=== PATIENT | female | born 1945 | race Caucasian/White ===

== ENCOUNTER → 2016-06-28 | Outpatient (CLI) | payer MEDICARE ==
[~2016-06-28] MED LIST: ADVAIR INH; ALEN70TA5 PO; ALPR-475 PO; ASPI-650 PO; ATOR40TA78 PO; LEVO75TA5 PO; OMEG1CAP12 PO; SERT50TA PO; TIOT18CA INH
== END | disposition home or self-care (01) ==
LOC: CFH 09:01
PROVIDERS: ATTEND Internal Medicine
DX: J43.9 Emphysema, unspecified (principal); I25.10 Atherosclerotic heart disease of native coronary artery without angina pectoris
CPT/HCPCS: 71250

== ENCOUNTER 2016-09-15 07:44 | Inpatient (IN) | payer MEDICARE ==
[~2016-09-15] VITALS: Ht 165.1 cm; Wt 80.6 kg
[~2016-09-15 07:44] MED LIST changes: -OMEG1CAP12 PO; +OMEG1CAP23 PO
[2016-09-15] MEDS ORDERED: ALBUTEROL SULFATE 2.5 MG/3 ML ONE ×4 (07:55→09:05)
[2016-09-15] MEDS ORDERED: methylPREDNISolone SOD SUCC 125 MG/2 ML ONE (07:55)
[2016-09-15] MEDS ORDERED: methylPREDNISolone SOD SUCC 125 MG/2 ML IVP ONE (08:00)
[2016-09-15] MEDS ORDERED: SODIUM CHLORIDE 0.9% 1,000ML IVBOLUS ONE (08:00)
[2016-09-15] MEDS ORDERED: ASPI-621 PO (08:20)
[2016-09-15] MEDS ORDERED: FLUT1DIS3 INH (08:23)
[2016-09-15] MEDS ORDERED: ALBU1.25 NEB (08:25)
[2016-09-15 08:26] LABS: ABG COLLECTION SITE RIGHT RADIAL; COLLATERAL CIRCULATION TESTING NORMAL
[2016-09-15] MEDS ORDERED: ALBU18HF IH (08:26)
[2016-09-15] MEDS ORDERED: PRED5TAB PO (08:27)
[2016-09-15] MEDS ORDERED: TRAM50TA2 PO (08:28)
[2016-09-15 08:34] LABS: HEMATOCRIT 44.1 % (34.6-47.8); HEMOGLOBIN 14.2 g/dL (11.7-16.4); WHITE BLOOD COUNT 9.6 x10^3/uL (3.4-10)
[2016-09-15] MEDS ORDERED: ACETAMINOPHEN 325 MG TABLET ONE (08:39)
[2016-09-15 08:51] LABS: ASPARTATE AMINO TRANSFERASE 21 U/L (15-37); BLOOD UREA NITROGEN 15 mg/dL (7-18)
[2016-09-15 08:57] LABS: IS PT STATUS REG ER OR PRE ER? YES
[2016-09-15] MEDS ORDERED: ACETAMINOPHEN 325 MG TABLET PO ONE (09:00)
[2016-09-15] MEDS ORDERED: MAGNESIUM SULFATE PMX 2GM/50ML 50 ML IV ONE (09:00)
[2016-09-15] MEDS ORDERED: SODIUM CHLORIDE FLUSH 10ML SYR IVF PRN (11:00)
[2016-09-15] MEDS ORDERED: ALBUTEROL/IPRATROPIUM 2.5MG/0.5MG, 3 ML ONE (11:38)
[2016-09-15] MEDS ORDERED: ACETAMINOPHEN 325 MG TABLET PO PRN (12:00)
[2016-09-15] MEDS ORDERED: ALENDRONATE 70 MG TABLET PO SCH (12:00)
[2016-09-15] MEDS: ALBUTEROL/IPRATROPIUM 2.5MG/0.5MG, 3 ML NPPB SCH ×4 (14:00→22:00)
[2016-09-15] MEDS: ENOXAPARIN 30 MG/0.3 ML SQ SCH (14:13)
[2016-09-15] MEDS ORDERED: ALBUTEROL/IPRATROPIUM 2.5MG/0.5MG, 3 ML NPPB SCH (15:00)
[2016-09-15 19:41] VITALS: BP 109/54
[2016-09-15] MEDS: SERTRALINE 50MG TABLET PO SCH (20:42)
[2016-09-15] MEDS: FAMOTIDINE 20 MG TABLET PO SCH (20:42)
[2016-09-15] MEDS: TEMPLATE NON-FORMULARY MED. (Tiotropium Bromide** (Spiriva**) 18 MCG) INH SCH (20:42)
[2016-09-15] MEDS: ATORVASTATIN 40 MG TABLET PO SCH (20:42)
[2016-09-15] MEDS ORDERED: ZOLP-413 PO (20:46)
[2016-09-15] MEDS ORDERED: TEMPLATE NON-FORMULARY MED. (Fluticasone/Salmeterol** (Advair 250-50 Diskus**) 1 PUFF) INH SCH (21:00)
[2016-09-15] MEDS ORDERED: ZOLPIDEM 5MG TABLET PO PRN (23:30)
[2016-09-16 01:38] VITALS: BP 114/62
[2016-09-16] MEDS: ENOXAPARIN 30 MG/0.3 ML SQ SCH ×2 (02:00→16:13)
[2016-09-16] MEDS: ALBUTEROL/IPRATROPIUM 2.5MG/0.5MG, 3 ML NPPB SCH ×5 (07:07→22:00)
[2016-09-16] MEDS: LEVOTHYROXINE 75 MCG TABLET PO SCH (08:38)
[2016-09-16] MEDS: ASPIRIN 81 MG TABLET EC PO SCH (08:38)
[2016-09-16 08:43] VITALS: BP 117/69
[2016-09-16] MEDS: TEMPLATE NON-FORMULARY MED. (Tiotropium Bromide** (Spiriva**) 18 MCG) INH SCH ×2 (09:00→21:00)
[2016-09-16 13:59] VITALS: BP 113/69
[2016-09-16] MEDS: FLUTICASONE/VILANTEROL 100-25MCG/INH INH SCH (16:12)
[2016-09-16] MEDS ORDERED: MAGNESIUM HYDROXIDE 8%, 30ML UDC PO PRN (19:00)
[2016-09-16 19:45] VITALS: BP 107/62
[2016-09-16] MEDS: FAMOTIDINE 20 MG TABLET PO SCH (21:59)
[2016-09-16] MEDS: SERTRALINE 50MG TABLET PO SCH (21:59)
[2016-09-16] MEDS: ATORVASTATIN 40 MG TABLET PO SCH (21:59)
[2016-09-17 02:06] VITALS: BP 116/74
[2016-09-17] MEDS: ENOXAPARIN 30 MG/0.3 ML SQ SCH (05:55)
[2016-09-17 06:55] VITALS: BP 114/71
[2016-09-17] MEDS: LEVOTHYROXINE 75 MCG TABLET PO SCH (07:40)
[2016-09-17] MEDS: ALBUTEROL/IPRATROPIUM 2.5MG/0.5MG, 3 ML NPPB SCH ×2 (08:01→12:21)
[2016-09-17] MEDS: FLUTICASONE/VILANTEROL 100-25MCG/INH INH SCH (08:15)
[2016-09-17] MEDS: ASPIRIN 81 MG TABLET EC PO SCH (08:15)
[2016-09-17] MEDS: TEMPLATE NON-FORMULARY MED. (Tiotropium Bromide** (Spiriva**) 18 MCG) INH SCH (08:16)
[2016-09-17] MEDS ORDERED: PRED20TA PO (10:50)
== END 2016-09-17 12:45 | disposition home or self-care (01) | DRG 189 ==
LOC: ED 09:02 → EDIP 10:47 → 4EST 12:58
PROVIDERS: ADMIT Family Medicine; ATTEND Family Medicine
PROC: 5A09357 Assistance with Respiratory Ventilation, Less than 24 Consecutive Hours, Continuous Positive Airway Pressure (ICD-10-PCS; principal; 2016-09-15)
DX: J96.01 Acute respiratory failure with hypoxia (principal); J44.1 Chronic obstructive pulmonary disease with (acute) exacerbation; E03.9 Hypothyroidism, unspecified; F32.9 Major depressive disorder, single episode, unspecified; G47.00 Insomnia, unspecified; G47.30 Sleep apnea, unspecified; I49.3 Ventricular premature depolarization; M81.0 Age-related osteoporosis without current pathological fracture; Z85.038 Personal history of other malignant neoplasm of large intestine; Z86.73 Personal history of transient ischemic attack (TIA), and cerebral infarction without residual deficits; Z87.891 Personal history of nicotine dependence; Z79.899 Other long term (current) drug therapy; Z79.82 Long term (current) use of aspirin
CPT/HCPCS: 36415; 36600; 71010; 80053; 82803; 83605; 83880; 84484; 85025; 87040; 93005; 94640; 94660; 96365; 96366; 96375; J1650; J7620; J2930; J3475; J7030; J7512

== ENCOUNTER → 2017-02-17 | Outpatient (CLI) | payer MEDICARE ==
[~2017-02-17] MED LIST changes: +ALBU1.25 NEB; +ALBU18HF IH; +ASPI-621 PO; +FLUT1DIS3 INH; +PRED20TA PO; +PRED5TAB PO; +TRAM50TA2 PO; +ZOLP-413 PO
== END | disposition home or self-care (01) ==
LOC: CFH 15:38
PROVIDERS: ATTEND Internal Medicine Cardiovascular Disease
DX: R06.02 Shortness of breath (principal); E78.5 Hyperlipidemia, unspecified; Z86.73 Personal history of transient ischemic attack (TIA), and cerebral infarction without residual deficits
CPT/HCPCS: 93306

== ENCOUNTER 2018-01-19 20:33 | Inpatient (IN) | payer MEDICARE ==
[~2018-01-19] VITALS: Ht 167.6 cm; Wt 82.8 kg
[~2018-01-19 20:33] MED LIST changes: -ASPI-621 PO; +ASPI81TA45 PO
[2018-01-19] MEDS ORDERED: ALBUTEROL/IPRATROPIUM 2.5MG/0.5MG, 3 ML ONE (20:39)
[2018-01-19] MEDS ORDERED: ALBUTEROL SULFATE 2.5 MG/3 ML NPPB ONE ×2 (21:00→22:30)
[2018-01-19 21:08] LABS: BASOPHILS # (AUTO) 0.02 x10^3/uL (0-0.1); BASOPHILS % (AUTO) 0 % (0-1); EOSINOPHILS # (AUTO) 0.78 x10^3/uL (0-0.4); EOSINOPHILS % (AUTO) 8 % (1-7); LYMPHOCYTES # (AUTO) 2.18 x10^3/uL (1-3.4); LYMPHOCYTES % (AUTO) 21 % (22-44); MD NO; MEAN CORPUSCULAR HEMOGLOBIN 31.5 pg (27.0-34.8); MEAN CORPUSCULAR VOLUME 95.4 fL (80-100); MEAN PLATELET VOLUME 8.5 fL (7.4-10.4); MONOCYTES # (AUTO) 0.97 x10^3/uL (0.2-0.8); MONOCYTES % (AUTO) 9 % (2-9); NEUTROPHILS # (AUTO) 6.53 x10^3/uL (1.8-6.8); NEUTROPHILS % (AUTO) 62 % (42-75); PLATELET COUNT 222 x10^3/uL (130-400); RED BLOOD COUNT 4.32 x10^6/uL (3.82-5.3); RED CELL DISTRIBUTION WIDTH 15.3 % (9.6-15.2)
[2018-01-19 21:21] LABS: ALANINE AMINOTRANSFERASE 45 U/L (12-78); ALBUMIN 4.1 g/dL (3.4-5.0); ANION GAP 7 mmol/L (5-15); CALCIUM 8.9 mg/dL (8.5-10.1); CHLORIDE 107 mmol/L (98-107)
[2018-01-19 21:25] LABS: ALKALINE PHOSPHATASE 48 U/L (45-117); BILIRUBIN,TOTAL 0.4 mg/dL (0.2-1.0); TOTAL PROTEIN 7.3 g/dL (6.4-8.2); TROPONIN I < 0.015 ng/mL (0.000-0.045)
[2018-01-19] MEDS ORDERED: LEVO100T5 PO (21:33)
[2018-01-19] MEDS ORDERED: GABA300C10 PO (21:33)
[2018-01-19] MEDS ORDERED: ALBUTEROL/IPRATROPIUM 2.5MG/0.5MG, 3 ML NPPB SCH (23:00)
[2018-01-19] MEDS ORDERED: ACETAMINOPHEN 500 MG TABLET ONE (23:28)
[2018-01-20 00:08] VITALS: BP 122/74
[2018-01-20] MEDS ORDERED: methylPREDNISolone SOD SUCC 125 MG/2 ML ONE (00:40)
[2018-01-20] MEDS ORDERED: methylPREDNISolone SOD SUCC 125 MG/2 ML IVPush SCH (01:00)
[2018-01-20] MEDS ORDERED: ALBUTEROL/IPRATROPIUM 2.5MG/0.5MG, 3 ML HHN SCH (01:00)
[2018-01-20] MEDS: SODIUM CHLORIDE 0.9% 1,000 ML IV SCH ×2 (01:05→10:43)
[2018-01-20] MEDS ORDERED: LORazepam 2 MG/ML, 1ML ONE (01:17)
[2018-01-20] MEDS: HEPARIN 5,000 UNITS/ML, 1ML SQ SCH ×3 (01:23→16:27)
[2018-01-20] MEDS ORDERED: LORazepam 2 MG/ML, 1ML IVPush PRN (01:30)
[2018-01-20 01:38] VITALS: BP 132/74
[2018-01-20] MEDS ORDERED: AZITHROMYCIN 500 MG in SODIUM CHLORIDE 0.9% 250 ML IV ONE (02:00)
[2018-01-20] MEDS: ALBUTEROL/IPRATROPIUM 2.5MG/0.5MG, 3 ML HHN SCH ×6 (03:00→22:38)
[2018-01-20 04:00] VITALS: BP 112/46
[2018-01-20] MEDS ORDERED: AZITHROMYCIN 500 MG in SODIUM CHLORIDE 0.9% 250 ML IV SCH (04:00)
[2018-01-20] MEDS: methylPREDNISolone SOD SUCC 125 MG/2 ML IVPush SCH ×4 (04:51→22:10)
[2018-01-20] MEDS: CEFTRIAXONE PMX 1GM/50ML 50 ML IV SCH (05:32)
[2018-01-20] MEDS ORDERED: ALENDRONATE 70 MG TABLET PO SCH (06:30)
[2018-01-20] MEDS: BUDESONIDE 0.5 MG/2 ML INHA NPPB SCH ×2 (07:02→18:42)
[2018-01-20 07:20] LABS: MEAN CORPUSCULAR HEMOGLOBIN 30.8 pg (27.0-34.8); MEAN CORPUSCULAR HGB CONC 32.1 g/dL (32.4-35.8); MEAN CORPUSCULAR VOLUME 95.9 fL (80-100); MEAN PLATELET VOLUME 9.3 fL (7.4-10.4); PLATELET COUNT 182 x10^3/uL (130-400); RED BLOOD COUNT 3.94 x10^6/uL (3.82-5.3); RED CELL DISTRIBUTION WIDTH 15.8 % (9.6-15.2)
[2018-01-20 07:28] LABS: ANION GAP 9 mmol/L (5-15); CALCIUM 8.7 mg/dL (8.5-10.1); CHLORIDE 110 mmol/L (98-107); CREATININE 1.08 mg/dL (0.55-1.02)
[2018-01-20 08:40] LABS: BASOPHILS # (AUTO) 0.01 x10^3/uL (0-0.1); BASOPHILS % (AUTO) 0 % (0-1); EOSINOPHILS # (AUTO) 0.09 x10^3/uL (0-0.4); EOSINOPHILS % (AUTO) 1 % (1-7); LYMPHOCYTES # (AUTO) 0.27 x10^3/uL (1-3.4); LYMPHOCYTES % (AUTO) 3 % (22-44); MD SCAN; MONOCYTES # (AUTO) 0.15 x10^3/uL (0.2-0.8); MONOCYTES % (AUTO) 2 % (2-9); NEUTROPHILS # (AUTO) 9.51 x10^3/uL (1.8-6.8); NEUTROPHILS % (AUTO) 95 % (42-75)
[2018-01-20] MEDS ORDERED: TEMPLATE NON-FORMULARY MED. (Fluticasone/Salmeterol** (Advair 250-50 Diskus**) 1 PUFF) INH SCH (09:00)
[2018-01-20] MEDS ORDERED: FAMOTIDINE 20 MG TABLET PO SCH (09:00)
[2018-01-20] MEDS ORDERED: TEMPLATE NON-FORMULARY MED. (Tiotropium Bromide** (Spiriva**) 18 MCG) INH SCH (09:00)
[2018-01-20] MEDS: LEVOTHYROXINE 100 MCG TABLET PO SCH (09:05)
[2018-01-20] MEDS: ASPIRIN 81 MG TABLET EC PO SCH (09:05)
[2018-01-20] MEDS: ACETAMINOPHEN 325 MG TABLET PO PRN ×3 (09:05→22:11)
[2018-01-20] MEDS: FAMOTIDINE 20 MG/2 ML IVPush SCH ×2 (09:06→22:10)
[2018-01-20 11:58] LABS: RAPID INFLUENZA A Negative (Negative); RAPID INFLUENZA B Negative (Negative)
[2018-01-20] MEDS ORDERED: AZITHROMYCIN 250 MG TABLET PO SCH (20:00)
[2018-01-20] MEDS ORDERED: ATORVASTATIN 40 MG TABLET PO SCH (21:00)
[2018-01-20] MEDS ORDERED: SERTRALINE 100MG TABLET PO SCH (21:00)
[2018-01-20] MEDS ORDERED: GABAPENTIN 100 MG CAPSULE PO SCH (21:00)
[2018-01-20] MEDS ORDERED: TRAZODONE 50MG TABLET PO PRN (21:00)
[2018-01-20 21:29] VITALS: BP 126/71
[2018-01-21] MEDS: HEPARIN 5,000 UNITS/ML, 1ML SQ SCH ×3 (01:00→17:00)
[2018-01-21 01:26] VITALS: BP 109/65
[2018-01-21] MEDS: ALBUTEROL/IPRATROPIUM 2.5MG/0.5MG, 3 ML HHN SCH ×4 (03:00→14:56)
[2018-01-21] MEDS: CEFTRIAXONE PMX 1GM/50ML 50 ML IV SCH (04:24)
[2018-01-21] MEDS: methylPREDNISolone SOD SUCC 125 MG/2 ML IVPush SCH (04:24)
[2018-01-21 04:32] VITALS: BP 114/66
[2018-01-21 07:36] VITALS: BP 120/76
[2018-01-21] MEDS: BUDESONIDE 0.5 MG/2 ML INHA NPPB SCH (08:16)
[2018-01-21] MEDS: ASPIRIN 81 MG TABLET EC PO SCH (08:38)
[2018-01-21] MEDS: FAMOTIDINE 20 MG/2 ML IVPush SCH (08:38)
[2018-01-21] MEDS: LEVOTHYROXINE 100 MCG TABLET PO SCH (08:39)
[2018-01-21] MEDS ORDERED: CEFDINIR 300 MG CAPSULE PO SCH (10:00)
[2018-01-21 10:38] LABS: BASOPHILS # (AUTO) 0.02 x10^3/uL (0-0.1); BASOPHILS % (AUTO) 0 % (0-1); EOSINOPHILS % (AUTO) 0 % (1-7); LYMPHOCYTES # (AUTO) 0.48 x10^3/uL (1-3.4); LYMPHOCYTES % (AUTO) 4 % (22-44); MD NO; MEAN CORPUSCULAR HGB CONC 32.3 g/dL (32.4-35.8); MEAN CORPUSCULAR VOLUME 96.1 fL (80-100); MEAN PLATELET VOLUME 8.4 fL (7.4-10.4); MONOCYTES # (AUTO) 0.99 x10^3/uL (0.2-0.8); MONOCYTES % (AUTO) 9 % (2-9); NEUTROPHILS # (AUTO) 10.15 x10^3/uL (1.8-6.8); NEUTROPHILS % (AUTO) 87 % (42-75); PLATELET COUNT 193 x10^3/uL (130-400); RED BLOOD COUNT 3.76 x10^6/uL (3.82-5.3); RED CELL DISTRIBUTION WIDTH 15.8 % (9.6-15.2)
[2018-01-21 10:48] LABS: ANION GAP 9 mmol/L (5-15); CALCIUM 8.2 mg/dL (8.5-10.1); CHLORIDE 112 mmol/L (98-107)
[2018-01-21 10:49] LABS: CREATININE 1.03 mg/dL (0.55-1.02)
[2018-01-21 15:20] VITALS: BP 141/78
[2018-01-21] MEDS ORDERED: FAMOTIDINE 20 MG TABLET PO SCH (21:00)
== END 2018-01-21 17:25 | disposition home or self-care (01) | DRG 189 ==
LOC: ED 21:26 → EDIP 23:25 → 4WST 01-20 → CCU 01-20 02:27 → 3NE 01-20 20:50
PROVIDERS: ADMIT Family Medicine; ATTEND Family Medicine
PROC: 5A09357 Assistance with Respiratory Ventilation, Less than 24 Consecutive Hours, Continuous Positive Airway Pressure (ICD-10-PCS; principal; 2018-01-19)
PROC: 5A09357 Assistance with Respiratory Ventilation, Less than 24 Consecutive Hours, Continuous Positive Airway Pressure (ICD-10-PCS; 2018-01-20)
DX: J96.21 Acute and chronic respiratory failure with hypoxia (principal); J18.9 Pneumonia, unspecified organism; J44.1 Chronic obstructive pulmonary disease with (acute) exacerbation; E87.2 Acidosis; E05.90 Thyrotoxicosis, unspecified without thyrotoxic crisis or storm; R53.81 Other malaise; E03.9 Hypothyroidism, unspecified; F32.9 Major depressive disorder, single episode, unspecified; G47.00 Insomnia, unspecified; G47.33 Obstructive sleep apnea (adult) (pediatric); M81.0 Age-related osteoporosis without current pathological fracture; Z79.52 Long term (current) use of systemic steroids; Z80.3 Family history of malignant neoplasm of breast; Z86.73 Personal history of transient ischemic attack (TIA), and cerebral infarction without residual deficits; Z87.891 Personal history of nicotine dependence; Z99.81 Dependence on supplemental oxygen; Z90.49 Acquired absence of other specified parts of digestive tract; Z23 Encounter for immunization
CPT/HCPCS: 36415; 36600; 71045; 80048; 80053; 82803; 83605; 84484; 85025; 87040; 87081; 87400; 90656; 93005; 94640; 94660; 99285; G0378; J0456; J0696; J1644; J7613; J7620; J7626; J2060; J2930; J3490; J7030; J7050; J7512

== ENCOUNTER 2019-08-01 13:35 | Outpatient (CLI) | payer MEDICARE ==
[~2019-08-01 13:35] MED LIST changes: -ALEN70TA5 PO; +ALEN70TA6 PO; -ALPR-475 PO; +ALPR0.5T7 PO; +GABA300C10 PO; +LEVO100T5 PO
== END 2019-08-01 23:59 | disposition home or self-care (01) ==
LOC: CFH 13:35
PROVIDERS: ATTEND Nurse Practitioner Family
DX: J98.4 Other disorders of lung (principal); J98.11 Atelectasis
CPT/HCPCS: 71250

== ENCOUNTER 2019-08-06 08:53 | Outpatient (CLI) | payer MEDICARE ==
[2019-08-06 09:57] LABS: BASOPHILS # (AUTO) 0.02 x10^3/uL (0-0.1); BASOPHILS % (AUTO) 0 % (0-1); EOSINOPHILS # (AUTO) 0.12 x10^3/uL (0-0.4); EOSINOPHILS % (AUTO) 2 % (1-7); LYMPHOCYTES # (AUTO) 0.74 x10^3/uL (1-3.4); LYMPHOCYTES % (AUTO) 10 % (22-44); MD NO; MEAN CORPUSCULAR HEMOGLOBIN 30.1 pg (27.0-34.8); MEAN CORPUSCULAR HGB CONC 31.9 g/dL (32.4-35.8); MEAN CORPUSCULAR VOLUME 94.5 fL (80-100); MEAN PLATELET VOLUME 8.1 fL (7.4-10.4); MONOCYTES # (AUTO) 0.38 x10^3/uL (0.2-0.8); MONOCYTES % (AUTO) 5 % (2-9); NEUTROPHILS # (AUTO) 6.04 x10^3/uL (1.8-6.8); NEUTROPHILS % (AUTO) 83 % (42-75); PLATELET COUNT 189 x10^3/uL (130-400); RED BLOOD COUNT 4.12 x10^6/uL (3.82-5.3); RED CELL DISTRIBUTION WIDTH 15.4 % (9.6-15.2)
[2019-08-06 10:08] LABS: INTERNATIONAL NORMALIZED RATIO 0.93 (0.93-1.1); PROTHROMBIN TIME 9.8 Seconds (9.6-11.5)
[2019-08-06] MEDS ORDERED: OMEP20TA62 PO (14:08)
[2019-08-06] MEDS ORDERED: IBUP-1623 PO (14:08)
[2019-08-06] MEDS ORDERED: CYCL-259 PO (14:08)
[2019-08-06] MEDS ORDERED: DIAZ5TAB4 PO (14:08)
[2019-08-06] MEDS ORDERED: NAPR220C2 PO (14:08)
[2019-08-06] MEDS ORDERED: PRED5TAB PO (14:08)
[2019-08-06] MEDS ORDERED: FLUT1BLS3 IH (14:08)
== END 2019-08-06 23:59 | disposition home or self-care (01) ==
LOC: STAR 08:53
PROVIDERS: ATTEND Internal Medicine
DX: Z01.818 Encounter for other preprocedural examination (principal); R93.89 Abnormal findings on diagnostic imaging of other specified body structures; I49.8 Other specified cardiac arrhythmias
CPT/HCPCS: 36415; 85025; 85610; 85730; 87635; 93005

== ENCOUNTER 2019-08-10 10:02 | Day surgery (SDC) | payer MEDICARE ==
[~2019-08-10] VITALS: Ht 165.1 cm; Wt 80.4 kg
[~2019-08-10 10:02] MED LIST changes: +CYCL-259 PO; +DIAZ5TAB4 PO; +FLUT1BLS3 IH; +IBUP-1623 PO; +NAPR220C2 PO; +OMEP20TA62 PO
[2019-08-10 10:41] VITALS: BP 119/68
[2019-08-10] MEDS ORDERED: SODIUM CHLORIDE 0.9% 1,000 ML IV SCH (10:44)
[2019-08-10] MEDS ORDERED: CHLORHEXIDINE 15 ML UDC MM ONE (11:00)
[2019-08-10] MEDS ORDERED: MIDAZOLAM 1 MG/ML, 5ML ONE (11:36)
[2019-08-10] MEDS ORDERED: FENTANYL PF 100 MCG/2ML ONE (11:36)
== END 2019-08-10 15:15 | disposition home or self-care (01) ==
LOC: OR 10:02
PROVIDERS: ATTEND Internal Medicine
DX: R91.1 Solitary pulmonary nodule (principal); G47.33 Obstructive sleep apnea (adult) (pediatric); J43.9 Emphysema, unspecified; E78.2 Mixed hyperlipidemia; E03.9 Hypothyroidism, unspecified; J96.10 Chronic respiratory failure, unspecified whether with hypoxia or hypercapnia; Z79.899 Other long term (current) drug therapy; Z79.82 Long term (current) use of aspirin; Z87.891 Personal history of nicotine dependence; Z86.73 Personal history of transient ischemic attack (TIA), and cerebral infarction without residual deficits; Z85.42 Personal history of malignant neoplasm of other parts of uterus; Z82.49 Family history of ischemic heart disease and other diseases of the circulatory system
CPT/HCPCS: 31622; 99152; 99153; J2250; J3010; J7030; 36415; 87635